=== PATIENT | male | born 2000 | race Caucasian/White ===

== ENCOUNTER 2024-01-29 17:12 | Emergency (ER) | payer BC ==
[~2024-01-29] VITALS: Ht 172.7 cm; Wt 90.4 kg
[2024-01-29 17:58] VITALS: BP 138/46; PULSE 66; RESP 18; TEMP 97.9; O2SAT 96
[2024-01-29] MEDS: IBUPROFEN 600 MG TAB PO ONE (19:08)
[2024-01-29] MEDS ORDERED: BACI-418 TP (20:19)
[2024-01-29] MEDS ORDERED: IBUP-2213 PO (20:19)
[2024-01-29] MEDS ORDERED: BACITRACIN OINT 500 UNITS/GM PKT TP ONE (20:24)
[2024-01-29 20:25] VITALS: BP 128/52; PULSE 60; RESP 18; TEMP 98.1; O2SAT 98
[2024-01-29] MEDS: BACITRACIN OINT 500 UNITS/GM PKT TP ONE (20:25)
== END 2024-01-29 20:25 | disposition home or self-care (01) ==
LOC: MED 17:12
DX: S61.012A Laceration without foreign body of left thumb without damage to nail, initial encounter (principal); Z79.899 Other long term (current) drug therapy; X58.XXXA Exposure to other specified factors, initial encounter; Y93.89 Activity, other specified; Y92.89 Other specified places as the place of occurrence of the external cause; Y99.8 Other external cause status
CPT/HCPCS: 12001; 99282

== ENCOUNTER 2024-02-11 18:14 | Emergency (ER) | payer BC ==
[~2024-02-11] VITALS: Ht 172.7 cm; Wt 90.7 kg
[~2024-02-11 18:14] MED LIST: BACI-418 TP; IBUP-2213 PO
[2024-02-11 18:51] VITALS: BP 119/56; PULSE 62; RESP 18; TEMP 97.2
== END 2024-02-11 19:11 | disposition home or self-care (01) ==
LOC: MED 18:14
DX: S61.012D Laceration without foreign body of left thumb without damage to nail, subsequent encounter (principal); Z48.02 Encounter for removal of sutures; Z79.899 Other long term (current) drug therapy; X58.XXXD Exposure to other specified factors, subsequent encounter
CPT/HCPCS: 99281